=== PATIENT | female | born 1965 | race Caucasian/White ===

== ENCOUNTER 2017-07-08 13:32 | Emergency (ER) | payer OTHER ==
[~2017-07-08] VITALS: Ht 160 cm; Wt 91.6 kg
[~2017-07-08 13:32] MED LIST: ALBU90I; ALBU90OI INH; ALBU90OI6; ALBU90OI6 INH; ALLEGRA ALLERG180 MG; ANTIHISTAMINE; AZIT250 PO; BUPR75; CETI5; CODACE30; CODACEE120; CRUTCH3 USE; FLUC150A PO; Flonase 0.05% N16 GM; GUAI120S1 PO; HYDACE5 PO; Keflex500 MG PO; LEVFLO500; LISI5; LORA1SY; NAPR550 PO; PRED10 PO; PRED20 PO; Prednisone20 MG PO; RXNAPNA550 PO; SPACE CHAMBER1 EACH MC; SULTRIDS PO; TRAM50 PO; TRIA80TC; Xopenex Hfa15 GM PO
[2017-07-08 14:18] LABS: International Normalized Ratio 0.93; Prothrombin Time Results 9.6 Sec (9.7-11.5)
[2017-07-08 14:20] LABS: Alanine Aminotransfer (ALT/SGP 36 U/L (12-78); Albumin, Blood 3.5 g/dL (3.4-5.0); Albumin/Globulin Ratio 0.9 (0.8-1.8); Alk Phos 105 U/L (50-136); Anion Gap 7 mmol/L (6-16); Aspartate Aminotrans (AST/SGOT 21 U/L (12-37); Bilirubin, Total 0.2 mg/dL (0.1-1.0); Blood Urea Nitrogen 13 mg/dL (8-24); Bun/Creatinine Ratio 23.7 (12.0-20.0); CO2, Blood 26 mmol/L (21-32); Calcium, Blood 9.2 mg/dL (8.5-10.1); Chloride, Blood 106 mmol/L (98-108); Creatinine, Blood 0.55 mg/dL (0.40-1.00); Globulin, Blood 3.8 g/dL (2.2-4.0); Glomerular Filtration Rate >60 (60-); Glucose, Blood 185 mg/dL (70-99); Potassium, Blood 3.8 mmol/L (3.5-5.5); Sodium, Blood 139 mmol/L (136-145); Total Protein, Blood 7.3 g/dL (6.4-8.2); Troponin I <0.015 ng/mL (0.000-0.040)
[2017-07-08 14:34] LABS: BASOPHILS ABSOLUTE AUTO 0.06 K/mm3 (0.00-0.23); BASOPHILS PERCENT AUTO 1 % (0-2); EOSINOPHILS ABSOLUTE AUTO 0.23 K/mm3 (0.00-0.68); EOSINOPHILS PERCENT AUTO 3 % (0-6); Hematocrit 41.4 % (33.0-51.0); IMMATURE GRAN ABSOLUTE AUTO 0.03 K/mm3 (0.00-0.10); IMMATURE GRAN PERCENT AUTO 0 % (0-1); LYMPHOCYTES ABSOLUTE AUTO 2.09 K/mm3 (0.84-5.20); LYMPHOCYTES PERCENT AUTO 24 % (21-46); MONOCYTES ABSOLUTE AUTO 0.47 K/mm3 (0.16-1.47); MONOCYTES PERCENT AUTO 6 % (4-13); Mean Corpuscular HGB 30.2 pg (26.0-34.0); Mean Corpuscular HGB Conc 33.8 g/dL (31.5-36.5); Mean Corpuscular Volume 89 fL (80-100); Mean Platelet Volume 12.4 fL (9.1-12.4); NEUTROPHILS ABSOLUTE AUTO 5.69 K/mm3 (1.96-9.15); NEUTROPHILS PERCENT AUTO 66 % (41-73); Platelet Count 163 K/mm3 (150-400); RDW Coefficient Variation 13.2 % (11.7-14.2); RDW Standard Deviation 43.2 fL (35.1-46.3); Red Blood Cell Count 4.63 M/mm3 (3.80-5.20); White Blood Cell Count 8.57 K/mm3 (4.00-11.30)
[2017-07-08 15:05] LABS: Magnesium, Blood 2.1 mg/dL (1.6-2.4)
== END 2017-07-08 17:05 | disposition home or self-care (01) ==
LOC: ER 13:32
PROVIDERS: Emergency Medicine; Physician Assistant
DX: R00.2 Palpitations (principal); R07.89 Other chest pain; Z88.0 Allergy status to penicillin; Z88.8 Allergy status to other drugs, medicaments and biological substances; F17.210 Nicotine dependence, cigarettes, uncomplicated
CPT/HCPCS: 36415; 71046; 80053; 83735; 83880; 84484; 85025; 85610; 93005; 93010; 93225; 93226; 99283

== ENCOUNTER 2017-11-29 17:02 | Emergency (ER) | payer OTHER ==
[~2017-11-29] VITALS: Ht 157.5 cm; Wt 96.2 kg
== END 2017-11-29 17:35 | disposition home or self-care (01) ==
LOC: ER 17:02
DX: S99.911A Unspecified injury of right ankle, initial encounter (principal); X50.9XXA Other and unspecified overexertion or strenuous movements or postures, initial encounter; Z88.0 Allergy status to penicillin; Z88.8 Allergy status to other drugs, medicaments and biological substances; F17.210 Nicotine dependence, cigarettes, uncomplicated
CPT/HCPCS: 29515; 73610; 73630; 99283-25

== ENCOUNTER 2018-06-17 07:57 | Emergency (ER) | payer OTHER ==
[~2018-06-17] VITALS: Ht 157.5 cm; Wt 90.7 kg
[2018-06-17] MEDS ORDERED: Norco 5-325 Ta1 EACH PO (08:46)
== END 2018-06-17 08:57 | disposition home or self-care (01) ==
LOC: ER 07:57
DX: M25.511 Pain in right shoulder (principal); G89.29 Other chronic pain; F17.200 Nicotine dependence, unspecified, uncomplicated; Z88.0 Allergy status to penicillin
CPT/HCPCS: 99283

== ENCOUNTER 2018-09-11 11:30 | Emergency (ER) | payer OTHER ==
[~2018-09-11] VITALS: Ht 157.5 cm; Wt 93.0 kg
[~2018-09-11 11:30] MED LIST changes: +Norco 5-325 Ta1 EACH PO
== END 2018-09-11 13:14 | disposition home or self-care (01) ==
LOC: ER 11:30
DX: S93.402A Sprain of unspecified ligament of left ankle, initial encounter (principal); X50.9XXA Other and unspecified overexertion or strenuous movements or postures, initial encounter; Z88.0 Allergy status to penicillin; Z88.8 Allergy status to other drugs, medicaments and biological substances; F17.210 Nicotine dependence, cigarettes, uncomplicated
CPT/HCPCS: 29515; 73610; 99283-25

== ENCOUNTER 2019-02-06 17:34 | Emergency (ER) | payer OTHER ==
[~2019-02-06] VITALS: Ht 165.1 cm; Wt 93.0 kg
[~2019-02-06 17:34] MED LIST changes: -Dicyclomine HCl20 MG PO; -Zofran4 MG PO
[2019-02-06] MEDS ORDERED: Dicyclomine HCl20 MG PO (21:07)
[2019-02-06] MEDS ORDERED: Zofran4 MG PO (21:07)
== END 2019-02-06 21:15 | disposition home or self-care (01) ==
LOC: ER 17:34
DX: A08.4 Viral intestinal infection, unspecified (principal); F17.210 Nicotine dependence, cigarettes, uncomplicated; Z88.0 Allergy status to penicillin; Z91.048 Other nonmedicinal substance allergy status
CPT/HCPCS: 76705; 99284-25; A9270-GY

== ENCOUNTER → 2019-02-06 | Outpatient (CLI) | payer OTHER ==
[~2019-02-06] MED LIST changes: +Dicyclomine HCl20 MG PO; +Zofran4 MG PO
[2019-02-06 16:49] LABS: BASOPHILS ABSOLUTE AUTO 0.03 K/mm3 (0.00-0.23); BASOPHILS PERCENT AUTO 0 % (0-2); EOSINOPHILS ABSOLUTE AUTO 0.06 K/mm3 (0.00-0.68); EOSINOPHILS PERCENT AUTO 1 % (0-6); Hematocrit 44.5 % (33.0-51.0); IMMATURE GRAN ABSOLUTE AUTO 0.03 K/mm3 (0.00-0.10); IMMATURE GRAN PERCENT AUTO 0 % (0-1); LYMPHOCYTES ABSOLUTE AUTO 0.64 K/mm3 (0.84-5.20); LYMPHOCYTES PERCENT AUTO 9 % (21-46); MONOCYTES ABSOLUTE AUTO 0.26 K/mm3 (0.16-1.47); MONOCYTES PERCENT AUTO 4 % (4-13); Mean Corpuscular HGB 31.8 pg (26.0-34.0); Mean Corpuscular HGB Conc 33.7 g/dL (31.5-36.5); Mean Corpuscular Volume 95 fL (80-100); Mean Platelet Volume 12.4 fL (9.1-12.4); NEUTROPHILS ABSOLUTE AUTO 5.83 K/mm3 (1.96-9.15); NEUTROPHILS PERCENT AUTO 85 % (41-73); Platelet Count 161 K/mm3 (150-400); RDW Coefficient Variation 13.7 % (11.7-14.2); RDW Standard Deviation 47.1 fL (35.1-46.3); Red Blood Cell Count 4.71 M/mm3 (3.80-5.20); White Blood Cell Count 6.85 K/mm3 (4.00-11.30)
[2019-02-06 17:04] LABS: Alanine Aminotransfer (ALT/SGP 35 U/L (12-78); Albumin, Blood 3.6 g/dL (3.4-5.0); Albumin/Globulin Ratio 0.9 (0.8-1.8); Alk Phos 102 U/L (40-126); Anion Gap 6 mmol/L (6-16); Aspartate Aminotrans (AST/SGOT 18 U/L (12-37); Bilirubin, Total 0.4 mg/dL (0.1-1.0); Blood Urea Nitrogen 11 mg/dL (8-24); Bun/Creatinine Ratio 12.4 (12.0-20.0); CO2, Blood 31 mmol/L (21-32); Calcium, Blood 9.1 mg/dL (8.5-10.1); Chloride, Blood 104 mmol/L (98-108); Creatinine, Blood 0.89 mg/dL (0.40-1.00); Globulin, Blood 3.8 g/dL (2.2-4.0); Glomerular Filtration Rate >60 (60-); Glucose, Blood 184 mg/dL (70-99); Potassium, Blood 3.9 mmol/L (3.5-5.5); Sodium, Blood 141 mmol/L (136-145); Total Protein, Blood 7.4 g/dL (6.4-8.2)
== END | disposition home or self-care (01) ==
LOC: LAB EV 16:42 → LAB SHORT 16:42
PROVIDERS: General Practice
DX: R07.9 Chest pain, unspecified (principal); R11.2 Nausea with vomiting, unspecified
CPT/HCPCS: 80053; 83690; 84484; 85025

== ENCOUNTER 2020-11-27 10:57 | Observation (INO) | payer OTHER ==
[~2020-11-27] VITALS: Ht 160 cm; Wt 81.7 kg
[~2020-11-27 10:57] MED LIST changes: +Dicyclomine HCl20 MG PO; +Zofran4 MG PO
[2020-11-27 11:46] LABS: BASOPHILS ABSOLUTE AUTO 0.05 K/mm3 (0.00-0.23); BASOPHILS PERCENT AUTO 1 % (0-2); EOSINOPHILS ABSOLUTE AUTO 0.17 K/mm3 (0.00-0.68); EOSINOPHILS PERCENT AUTO 2 % (0-6); Hematocrit 39.7 % (33.0-51.0); Hemoglobin 13.2 g/dL (11.5-16.0); IMMATURE GRAN ABSOLUTE AUTO 0.02 K/mm3 (0.00-0.10); IMMATURE GRAN PERCENT AUTO 0 % (0-1); LYMPHOCYTES ABSOLUTE AUTO 1.61 K/mm3 (0.84-5.20); LYMPHOCYTES PERCENT AUTO 21 % (21-46); MONOCYTES ABSOLUTE AUTO 0.42 K/mm3 (0.16-1.47); MONOCYTES PERCENT AUTO 5 % (4-13); Mean Corpuscular HGB 30.6 pg (26.0-34.0); Mean Corpuscular HGB Conc 33.2 g/dL (31.5-36.5); Mean Corpuscular Volume 92 fL (80-100); Mean Platelet Volume 12.7 fL (9.1-12.4); NEUTROPHILS ABSOLUTE AUTO 5.51 K/mm3 (1.96-9.15); NEUTROPHILS PERCENT AUTO 71 % (41-73); Platelet Count 158 K/mm3 (150-400); RDW Coefficient Variation 13.5 % (11.7-14.2); RDW Standard Deviation 45.5 fL (35.1-46.3); Red Blood Cell Count 4.32 M/mm3 (3.80-5.20); White Blood Cell Count 7.78 K/mm3 (4.00-11.30)
[2020-11-27 12:16] LABS: Alanine Aminotransfer (ALT/SGP 25 U/L (12-78); Albumin, Blood 3.2 g/dL (3.4-5.0); Alk Phos 83 U/L (50-136); Anion Gap 3 mmol/L (6-16); Aspartate Aminotrans (AST/SGOT 18 U/L (12-37); Bilirubin, Total 0.3 mg/dL (0.1-1.0); Blood Urea Nitrogen 11 mg/dL (8-24); Bun/Creatinine Ratio 18.7 (12.0-20.0); CO2, Blood 27 mmol/L (21-32); Calcium, Blood 8.6 mg/dL (8.5-10.1); Chloride, Blood 109 mmol/L (98-108); Creatinine, Blood 0.59 mg/dL (0.40-1.00); Globulin, Blood 3.3 g/dL (2.2-4.0); Glomerular Filtration Rate >60 (60-); Glucose, Blood 265 mg/dL (70-99); Potassium, Blood 4.1 mmol/L (3.5-5.5); Sodium, Blood 139 mmol/L (136-145); Total Protein, Blood 6.5 g/dL (6.4-8.2); Troponin I <0.015 ng/mL (0.000-0.040)
[2020-11-27 15:21] LABS: SARS-Cov-2 (COVID-19) PCR, MMC NEGATIVE (NEGATIVE)
--- NOTE | 2020-11-27 16:38 | NUR ---
PT ARRIVED TO UNIT FROM ED VIA GURNEY, ABLE TO SELF TRANSFER TO BED, ABLE TO AMBULATE TO BATHROOM AND BACK TO BED WITH STEADY GAIT. PT IS ALERT AND ORIENTED, COOPERATIVE WITH CARE. VSS, ON ROOM AIR AND TOLERATING WELL. PT DENIES CHEST PAIN/PRESSURE, DENIES NAUSEA/HEADACHE. NITRO PATCH IN PLACE ON LEFT UPPER CHEST. TELEMETRY IN PLACE. PT ORIENTED TO ROOM AND CALL LIGHT WITHIN REACH, BED IN LOW POSITION.
--- NOTE | 2020-11-27 19:45 | NUR ---
DR Radha MARTINEZ notified of call from Tele Monitor Luiza in [facility] in couplets & triplets & discussed lack of complaints from PT. He will write order to adress PVCS up to 21 per minute ongoing. Continue observation & administer rx betablocker per MD orders.
--- NOTE | 2020-11-27 20:52 | NUR ---
echo done today results in chart & show EF 25 to 30% with global hypokinesis & trabiculations at [facility] with mild pul hypertension. Borderline heart enlargement.
[2020-11-28 05:59] LABS: CHOL/HDL RATIO 3.1; Cholesterol 134 mg/dL (50-200); HDL Cholesterol 43 mg/dL (>39); LDL/HDL RATIO 1.6; Low Density Lipoprotein Chol 70 mg/dL (0-110); Triglycerides 107 mg/dL (30-160); Very Low Density Lipoprot Chol 21 mg/dL (6-32)
--- NOTE | 2020-11-28 07:29 | NUR ---
PT a 1 PPD smoker for 25 years. PT encouraged to stop smoking. She denies SOB or chest pain or weakness. Low EF per echo yesterday with BNP 410. PT says Mother & GMA of strokes in their 50s. Sleepy rouses easily. Pleasant. PT has 4 adopted Children & 4 grandchildren in home currently. Has Sister in Law & brother with active covid 19 & attended a for a covid 19PT over the weekend, not vaccinated for covid 19.
[2020-11-28 11:49] LABS: U Amphetamine Screen Not Detected; U Barbituate Screen Not Detected; U Methamphetamine Screen Not Detected
[2020-11-28 11:50] LABS: U Benzodiazapine Screen Not Detected; U Buprenorphine Screen Not Detected; U Cannabinoids Screen Not Detected; U Cocaine Screen Not Detected; U Methadone Screen Not Detected; U Opiates Screen Not Detected; U Oxycodone Screen Not Detected; U Phencyclidine Screen Not Detected; U Propoxyphene Screen Not Detected
--- NOTE | 2020-11-28 16:56 | NUR ---
SHIFT SUMMARY PT IS AOX4. PT DENIES PAIN, N/V, SOB. PT IS INDEPENDENT IN ROOM. TELE REMAINS NSR WITH PVCS IN THE 70S. APPETITE IS GOOD AND PT IS CURRENTLY NPO FOR POTENTIAL ANGIOGRAM. PT HAD CARDIOLOGY CONSULT TODAY. PT HAS NOT HAD ANY PROCEDURES THIS SHIFT. PLAN IS FOR INPATIENT PROCEDURE OR OUTPATIENT PROCEDURES AND STRESS TEST. PT'S IS IN THE ROOM TO VISIT THIS TIMMY. PT IS IN CHAIR, CALL LIGHT IN REACH.
[2020-11-28] MEDS ORDERED: ATOR80 PO (17:51)
[2020-11-28] MEDS ORDERED: METO25ER PO (17:51)
[2020-11-28] MEDS ORDERED: ASPI81CH PO (17:51)
[2020-11-28] MEDS ORDERED: ENTRESTO 24 MG1 EACH PO (17:52)
[2020-11-28] MEDS ORDERED: SPIR25 PO (17:53)
[2020-11-28] MEDS ORDERED: NICOTINE1 EAC1 TOP (17:53)
[2020-11-28] MEDS ORDERED: FARXIGA10 MG PO (17:53)
--- NOTE | 2020-11-28 18:40 | NUR ---
DISCHARGE NOTE PT IS AOX4. PT IV REMOVED BY THIS RN PER DOCUMENTATION. THIS RN REVIEWED DC INSTRUCTIONS AND MEDICATIONS WITH PT WHO VERBALIZED UNDERSTANDING. PT DRESSED SELF IN HOME CLOTHING. PT GIVEN FIRST DOSE OF ENTRESTO-BP RECHECK WITHIN PARAMETERS TO SEND PT HOME TONIGHT. PT BELONGINGS PRESENT. PT WHEELED OFF UNIT BY NEONATOLOGIST AND LEFT IN PRIVATE VEHICLE WITH .
== END 2020-11-28 18:37 | disposition home or self-care (01) ==
LOC: ER 10:57 → MEDS 10:58
PROVIDERS: Internal Medicine Cardiovascular Disease; Nurse Practitioner Acute Care; Physician Assistant; ADMIT Internal Medicine
DX: I50.21 Acute systolic (congestive) heart failure (principal); F17.210 Nicotine dependence, cigarettes, uncomplicated; I49.3 Ventricular premature depolarization; I08.3 Combined rheumatic disorders of mitral, aortic and tricuspid valves; I47.1 Supraventricular tachycardia; E66.01 Morbid (severe) obesity due to excess calories; E11.65 Type 2 diabetes mellitus with hyperglycemia; I27.20 Pulmonary hypertension, unspecified; Z88.0 Allergy status to penicillin; Z91.048 Other nonmedicinal substance allergy status; Z20.822 Contact with and (suspected) exposure to COVID-19
CPT/HCPCS: 36415; 71045; 80053; 80061; 83036; 83880; 84443; 84484; 85025; 85379; 93005; 93010; 96372; 99285-25; A9270; C8929; G0378; J1650; Q9957; U0004

== ENCOUNTER 2021-03-10 16:35 | Inpatient (IN) | payer OTHER ==
[~2021-03-10] VITALS: Ht 160 cm; Wt 82.1 kg
[~2021-03-10 16:35] MED LIST changes: +ATOR80 PO; +Aspir 8181 MG PO; +ENTRESTO 24 MG1 EACH PO; +FARXIGA10 MG PO; +METO25ER PO; +NICOTINE1 EAC1 TOP; +SPIR25 PO
[2021-03-10] MEDS ORDERED: ATOR10 PO (17:14)
[2021-03-10] MEDS ORDERED: METF500C PO (17:15)
[2021-03-10] MEDS ORDERED: C COMPLEX1000 M1 PO (17:16)
[2021-03-10] MEDS ORDERED: VITAMIN D5000 UNIT PO (17:16)
[2021-03-10 17:21] LABS: Source, Urine Voided
[2021-03-10 17:25] LABS: Appearance, Urine Clear (Clear); Bilirubin, Urine Neg (Neg); Blood, Urine Neg (Neg); Color, Urine Yellow (P-Yellow); Glucose Qualitative, Urine Neg (Neg); Ketones, Urine Neg (Neg); Leukocyte Esterase, Urine Neg (Neg); Nitrite, Urine Neg (Neg); Protein, Urine Neg (Neg); Urobilinogen, Urine NORM (Normal)
[2021-03-10 17:31] LABS: BASOPHILS ABSOLUTE AUTO 0.04 K/mm3 (0.00-0.23); BASOPHILS PERCENT AUTO 1 % (0-2); EOSINOPHILS ABSOLUTE AUTO 0.37 K/mm3 (0.00-0.68); EOSINOPHILS PERCENT AUTO 5 % (0-6); Hematocrit 41.9 % (33.0-51.0); IMMATURE GRAN ABSOLUTE AUTO 0.02 K/mm3 (0.00-0.10); IMMATURE GRAN PERCENT AUTO 0 % (0-1); LYMPHOCYTES ABSOLUTE AUTO 1.79 K/mm3 (0.84-5.20); LYMPHOCYTES PERCENT AUTO 25 % (21-46); MONOCYTES ABSOLUTE AUTO 0.48 K/mm3 (0.16-1.47); MONOCYTES PERCENT AUTO 7 % (4-13); Mean Corpuscular HGB 30.3 pg (26.0-34.0); Mean Corpuscular HGB Conc 33.4 g/dL (31.5-36.5); Mean Corpuscular Volume 91 fL (80-100); NEUTROPHILS ABSOLUTE AUTO 4.62 K/mm3 (1.96-9.15); NEUTROPHILS PERCENT AUTO 63 % (41-73); RDW Coefficient Variation 13.2 % (11.7-14.2); RDW Standard Deviation 43.9 fL (35.1-46.3); Red Blood Cell Count 4.62 M/mm3 (3.80-5.20); White Blood Cell Count 7.32 K/mm3 (4.00-11.30)
[2021-03-10 17:34] LABS: Mean Platelet Volume 12.2 fL (9.1-12.4); Platelet Count 132 K/mm3 (150-400)
[2021-03-10 17:35] LABS: Alanine Aminotransfer (ALT/SGP 32 U/L (12-78); Albumin, Blood 3.3 g/dL (3.4-5.0); Albumin/Globulin Ratio 0.9 (0.8-1.8); Alk Phos 104 U/L (50-136); Anion Gap 6 mmol/L (6-16); Aspartate Aminotrans (AST/SGOT 19 U/L (12-37); Bilirubin, Total 0.2 mg/dL (0.1-1.0); Blood Urea Nitrogen 9 mg/dL (8-24); Bun/Creatinine Ratio 15.9 (12.0-20.0); CO2, Blood 24 mmol/L (21-32); Calcium, Blood 9.2 mg/dL (8.5-10.1); Chloride, Blood 110 mmol/L (98-108); Creatinine, Blood 0.57 mg/dL (0.40-1.00); Globulin, Blood 3.6 g/dL (2.2-4.0); Glomerular Filtration Rate >60 (60-); Glucose, Blood 162 mg/dL (70-99); Potassium, Blood 3.9 mmol/L (3.5-5.5); Sodium, Blood 140 mmol/L (136-145); Total Protein, Blood 6.9 g/dL (6.4-8.2)
[2021-03-11 03:01] LABS: Influenza A, PCR NEGATIVE (NEGATIVE); Influenza B, PCR NEGATIVE (NEGATIVE); Resp Syncytial Virus, PCR NEGATIVE (NEGATIVE)
[2021-03-11 03:09] LABS: SARS-Cov-2 (COVID-19) PCR, MMC POSITIVE (NEGATIVE)
[2021-03-11 07:32] LABS: CHOL/HDL RATIO 2.8; Cholesterol 109 mg/dL (50-200); HDL Cholesterol 39 mg/dL (>39); LDL/HDL RATIO 0.9; Low Density Lipoprotein Chol 37 mg/dL (0-110); Triglycerides 166 mg/dL (30-160); Very Low Density Lipoprot Chol 33 mg/dL (6-32)
[2021-03-11 11:51] LABS: SARS-Cov-2 (COVID-19) PCR, MMC POSITIVE (NEGATIVE)
[2021-03-11] MEDS ORDERED: ZINC50 M3 PO (15:34)
--- NOTE | 2021-03-11 18:49 | NUR ---
ADMISSION/SHIFT SUMMARY: PT IS NEW ADMIT FROM ER, ARRIVING S/P UPHOLSTERY AUTO TRIMMER AT APPROX 1645. PT ARRIVES A&Ox4, MAINTAINS O2 SATS >93% ON RA, SR ON MONITOR. RT RADIAL ACCESS SITE W/TR BAND IN PLACE, CURRENTLY BEING DEFLATED PER PROTOCOL. PT DENIES SOB, CP, DIZZINESS OR SYNCOPAL EPISODES. PT AMBULATES TO/FROM RESTROOM W/SBA AND ABLE TO EAT DINNER TRAY W/OUT DIFFICULTY. PLAN IS FOR PT TO RETURN TO [employer] TOMORROW FOR PACER/DEFIB PLACEMENT. AT THIS TIME, PT RESTING QUIETLY IN BED W/LIGHTS LOW, CALL LIGHT WITHIN REACH. WILL CONTINUE TO MONITOR AND TREAT ACCORDINGLY UNTIL CHANGE OF SHIFT.
--- NOTE | 2021-03-11 19:54 | NUR ---
ASSUMPTION OF CARE NOTE PT IS ALERT AND ORIENTED X 4. ABLE TO USE BEDSIDE COMMODE AND DENIED ANY FEELING OF SHORTNESS OF BREATH OR CHEST PAIN/PRESSURE. RIGHT RADIAL ACCESS SITE HAS TR BAND IN PLACE, NO APPARENT BLEEDING. 2 ML AIR REMOVED AT 1955, 3ML REMAINING. ARM BOARD IN PLACE. IV FLUID RUNNING AT 200 ML/HR. WILL CONTINUE TO MONITOR. ZOLL DEFIBRILATOR AT BEDSIDE. CALL LIGHT IN REACH.
--- NOTE | 2021-03-12 02:43 | NUR ---
CARE NOTE PT AWAKE TO UTILIZE COMMODE SO TR BAND REMOVED APPROX 0230 FROM RIGHT RADIAL ACCESS SITE. SITE HAS REMAINED UNCHANGED FROM PREVIOUS ASSESSMENT AND IS NOW COVERED WITH TRANSPARENT DRESSING. ARM BOARD IN PLACE. NO OTHER ACUTE CHANGES NOTED, WILL CONTINUE TO MONITOR.
--- NOTE | 2021-03-12 03:33 | NUR ---
CARE NOTE RIGHT RADIAL ACCESS SITE REMAINS UNCHANGED FROM PREVIOUS ASSESSMENT, TRANSPARENT DRESSING REMAINS INTACT, ARM BOARD IN PLACE. WILL CONTINUE TO MONITOR, CALL LIGHT IN REACH.
[2021-03-12 04:36] LABS: Anion Gap 4 mmol/L (6-16); Blood Urea Nitrogen 7 mg/dL (8-24); Bun/Creatinine Ratio 13.4 (12.0-20.0); CO2, Blood 27 mmol/L (21-32); Calcium, Blood 8.8 mg/dL (8.5-10.1); Chloride, Blood 111 mmol/L (98-108); Creatinine, Blood 0.52 mg/dL (0.40-1.00); Glomerular Filtration Rate >60 (60-); Glucose, Blood 117 mg/dL (70-99); Potassium, Blood 3.9 mmol/L (3.5-5.5); Sodium, Blood 142 mmol/L (136-145)
--- NOTE | 2021-03-12 05:36 | NUR ---
CARE NOTE PT ALERT AND ORIENTED X 4. PT REPORTED BACK PAIN 7/10 AND STATED SHE FEELS LIKE SHE HAS A KNOT IN HER BACK FROM THE BED. THIS NURSE PROVIDED HEAT PAD AND GAVE BACK MASSAGE. PT REPORTED RELIEF FROM BOTH MEASURES. WILL CONTINUE TO MONITOR.
--- NOTE | 2021-03-12 06:25 | NUR ---
SHIFT SUMMARY PT REMAINED ALERT AND ORIENTED X 4. VITAL SIGNS STABLE. PT CONTINUED TO AMBULATE TO BEDSIDE COMMODE TO VIOD. WHEN AMBULATING PT DENIED LIGHTHEADEDNESS, SHORTNESS OF BREATH, OR CHEST PAIN/PRESSURE. PT REPORTED BACK PAIN DURING SHIFT. SEE PREVIOUS NOTE. RIGHT RADIAL ACCESS SITE REMAINS UNCHANGED FROM PREVIOUS ASSESSMENT. NO OTHER ACUTE CHANGES, NO CARDIAC EVENTS DURING SHIFT. WILL CONTINUE TO MONITOR UNTIL REPORT GIVEN. CALL LIGHT IN REACH, PT NOW WATCHING TV.
[2021-03-12 06:48] LABS: BASOPHILS ABSOLUTE AUTO 0.03 K/mm3 (0.00-0.23); BASOPHILS PERCENT AUTO 0 % (0-2); EOSINOPHILS ABSOLUTE AUTO 0.31 K/mm3 (0.00-0.68); EOSINOPHILS PERCENT AUTO 4 % (0-6); Hemoglobin 12.8 g/dL (11.5-16.0); IMMATURE GRAN ABSOLUTE AUTO 0.01 K/mm3 (0.00-0.10); IMMATURE GRAN PERCENT AUTO 0 % (0-1); LYMPHOCYTES ABSOLUTE AUTO 1.58 K/mm3 (0.84-5.20); LYMPHOCYTES PERCENT AUTO 22 % (21-46); MONOCYTES ABSOLUTE AUTO 0.43 K/mm3 (0.16-1.47); MONOCYTES PERCENT AUTO 6 % (4-13); Mean Corpuscular HGB Conc 32.8 g/dL (31.5-36.5); Mean Corpuscular Volume 92 fL (80-100); Mean Platelet Volume 11.8 fL (9.1-12.4); NEUTROPHILS ABSOLUTE AUTO 4.76 K/mm3 (1.96-9.15); NEUTROPHILS PERCENT AUTO 67 % (41-73); Platelet Count 151 K/mm3 (150-400); RDW Coefficient Variation 13.2 % (11.7-14.2); RDW Standard Deviation 44.3 fL (35.1-46.3); Red Blood Cell Count 4.26 M/mm3 (3.80-5.20); White Blood Cell Count 7.12 K/mm3 (4.00-11.30)
--- NOTE | 2021-03-12 16:59 | NUR ---
SHIFT SUMMARY: PT CONTINUES A&O T/OUT SHIFT, MAINTAINS O2 SATS >93% ON RA, SR ON MONITOR. RT RADIAL SITE CONTINUES TO HEAL WNL, ARM BOARD IN PLACE. PT TO/FROM C W/SBA W/OUT DIFFICULTY OR C/O DIZZINESS. PT PROVIDED W/WARM BLANKETS AND HEATING PAD RESTARTED FOR BACK PAIN, PT CONTINUES TO REPORT IMPROVEMENT OF BACK PAIN. PT REMAINS NPO T/OUT THE DAY, GOES TO UI ARCHITECT APPROX 1535 FOR ICD PLACEMENT, PT STILL IN UI ARCHITECT AT THIS TIME. WILL CONTINUE TO MONITOR AND TREAT ACCORDINGLY UNTIL CHANGE OF SHIFT.
--- NOTE | 2021-03-12 18:48 | NUR ---
UPDATE: PT ARRIVES BACK TO UNIT APPROX 1730 S/P DUAL CHAMBER PACEMAKER PLACEMENT. PT ARRIVES A&O, CONTINUES ON ROOM AIR, SR ON MONITOR, ACCESS SITE TO L CHEST WALL WITH MILD SWELLING, CLEAR DRESSING IN PLACE, RN ED RN DENIES NEED FOR PRESSURE DRESSING. VS CONTINUE WNL, PT PROVIDED WITH MEAL TRAY. AT THIS TIME, PT RESTING QUIETLY IN ROOM, DENIES FURTHER NEEDS. WILL CONTINUE TO MONITOR.
--- NOTE | 2021-03-13 04:33 | NUR ---
SHIFT SUMMARY PATIENT ALERT AND ORIENTED ALL SHIFT. VSS. PATIENT REMAINS ON ROOM AIR WITH OXYGEN SATURATION ABOVE 95%. MEDICATED PER EMAR FOR PAIN. DENIES CHEST PAIN BUT COMPLAINS OF POST PROCEDURE PAIN. DRESSING ON LEFT CHEST WALL HAS A SMALL AMOUNT OF DRAINAGE. RIGHT RADIAL SITE COVERED WITH TRANSPRENT DRESSING THAT IS C/D/I, ARM BOARD IN PLACE. PATIENT ABLE TO USE BEDSIDE COMMODE THROUGH NIGHT, UP STAND BY ASSIST. NO OTHER SIGNIFICANT CHANGES. PATIENT ABLE TO MAKE NEEDS KNOWN TO STAFF. WILL CONTINUE TO MONITOR.
[2021-03-13] MEDS ORDERED: ENTRESTO 24 MG1 EAC2 PO (11:59)
--- NOTE | 2021-03-13 12:28 | NUR ---
Discharge instructions reviewed with the patient, including activity restrictions, keeping wound clean and dry until woundcheck appointment next week, follow up appointments, and new prescription. PT verbalized understanding of all of these, and said that her will be coming to pick her up.
== END 2021-03-13 13:14 | disposition home or self-care (01) | DRG 224 ==
LOC: ER 16:35 → ERHOLD 16:36 → PCU 03-11 16:16
PROVIDERS: Family Medicine; Internal Medicine Cardiovascular Disease; Student in an Organized Health Care Education/Training Program; ADMIT Internal Medicine
PROC: 4A023N7 Measurement of Cardiac Sampling and Pressure, Left Heart, Percutaneous Approach (ICD-10-PCS; 2021-03-11)
PROC: B2111ZZ Fluoroscopy of Multiple Coronary Arteries using Low Osmolar Contrast (ICD-10-PCS; 2021-03-11)
PROC: 0JH608Z Insertion of Defibrillator Generator into Chest Subcutaneous Tissue and Fascia, Open Approach (ICD-10-PCS; principal; 2021-03-12)
PROC: 02HK3KZ Insertion of Defibrillator Lead into Right Ventricle, Percutaneous Approach (ICD-10-PCS; 2021-03-12)
PROC: 02H63KZ Insertion of Defibrillator Lead into Right Atrium, Percutaneous Approach (ICD-10-PCS; 2021-03-12)
DX: I49.3 Ventricular premature depolarization (principal); U07.1 COVID-19; G45.9 Transient cerebral ischemic attack, unspecified; I50.22 Chronic systolic (congestive) heart failure; G81.94 Hemiplegia, unspecified affecting left nondominant side; I42.8 Other cardiomyopathies; R55 Syncope and collapse; I11.0 Hypertensive heart disease with heart failure; E78.5 Hyperlipidemia, unspecified; E11.9 Type 2 diabetes mellitus without complications; I08.3 Combined rheumatic disorders of mitral, aortic and tricuspid valves; E66.9 Obesity, unspecified; G47.33 Obstructive sleep apnea (adult) (pediatric); R29.810 Facial weakness; F17.210 Nicotine dependence, cigarettes, uncomplicated; Z71.6 Tobacco abuse counseling; Z79.82 Long term (current) use of aspirin; Z79.899 Other long term (current) drug therapy; Z88.0 Allergy status to penicillin; Z28.9 Immunization not carried out for unspecified reason; Z91.048 Other nonmedicinal substance allergy status; Z90.710 Acquired absence of both cervix and uterus; Z98.890 Other specified postprocedural states; Z79.84 Long term (current) use of oral hypoglycemic drugs; Z91.19 Patient's noncompliance with other medical treatment and regimen
CPT/HCPCS: 0241U; 33249; 36415; 70496; 70498; 71045; 80048; 80053; 80061; 81003; 84484; 85025; 93005; 93010; 93454; 99152; 99153; 99285-25; A9270; C1721; C1769; C1887; C1894; C1895; C1898; G0378; J0690; J1644; J2250; J2405; J3010; J3370; J7030; J7040; J7050; Q9967; U0004

== ENCOUNTER 2025-03-03 21:32 | Emergency (ER) | payer MEDICARE, OTHER ==
[~2025-03-03] VITALS: Ht 160 cm; Wt 74.8 kg
[~2025-03-03 21:32] MED LIST changes: +ATOR10 PO; +C COMPLEX1000 M1 PO; +ENTRESTO 24 MG1 EAC2 PO; +METF500C PO; +VITAMIN D5000 UNIT PO; +ZINC50 M3 PO
[2025-03-03 22:49] LABS: BASOPHILS ABSOLUTE AUTO 0.07 K/mm3 (0.00-0.23); BASOPHILS PERCENT AUTO 1 % (0-2); EOSINOPHILS ABSOLUTE AUTO 0.34 K/mm3 (0.00-0.68); EOSINOPHILS PERCENT AUTO 3 % (0-6); Hematocrit 46.3 % (33.0-51.0); Hemoglobin 15.4 g/dL (11.5-16.0); IMMATURE GRAN ABSOLUTE AUTO 0.03 K/mm3 (0.00-0.10); IMMATURE GRAN PERCENT AUTO 0 % (0-1); LYMPHOCYTES ABSOLUTE AUTO 2.61 K/mm3 (0.84-5.20); LYMPHOCYTES PERCENT AUTO 26 % (21-46); MONOCYTES ABSOLUTE AUTO 0.65 K/mm3 (0.16-1.47); MONOCYTES PERCENT AUTO 7 % (4-13); Mean Corpuscular HGB Conc 33.3 g/dL (31.5-36.5); Mean Corpuscular Volume 92 fL (80-100); NEUTROPHILS ABSOLUTE AUTO 6.29 K/mm3 (1.96-9.15); NEUTROPHILS PERCENT AUTO 63 % (41-73); NRBC ABSOLUTE 0.00 K/mm3 (0.00-0.02); NRBC Auto 0.0 /100 WBC (0.0-0.2); Platelet Count 188 K/mm3 (150-400); RDW Coefficient Variation 13.3 % (11.7-14.2); RDW Standard Deviation 45.2 fL (35.1-46.3)
[2025-03-03 23:09] LABS: Alanine Aminotransfer (ALT/SGP 35.0 U/L (12-78); Albumin, Blood 3.8 g/dL (3.4-5.0); Albumin/Globulin Ratio 1.0 (0.8-1.8); Anion Gap 7.0 mmol/L (3-11); Aspartate Aminotrans (AST/SGOT 20.0 U/L (12-37); Bilirubin, Total 0.3 mg/dL (0.1-1.0); Blood Urea Nitrogen 22.0 mg/dL (8-24); CO2, Blood 28.0 mmol/L (21-32); Calcium, Blood 9.9 mg/dL (8.5-10.1); Chloride, Blood 105.0 mmol/L (98-108); Creatinine, Blood 0.73 mg/dL (0.40-1.00); Globulin, Blood 3.7 g/dL (2.2-4.0); Glucose, Blood 122.0 mg/dL (70-99); Potassium, Blood 4.0 mmol/L (3.5-5.5); Sodium, Blood 136.0 mmol/L (136-145); Total Protein, Blood 7.5 g/dL (6.4-8.2)
[2025-03-04] MEDS ORDERED: ONDA4ODT MM (01:00)
[2025-03-04] MEDS ORDERED: RX Prepack 2 Tabs Ondansetron ODT 4MG UD ONE (01:05)
[2025-03-04 01:15] VITALS: BP 90/56
== END 2025-03-04 01:15 | disposition home or self-care (01) ==
LOC: ER 21:32
PROVIDERS: Student in an Organized Health Care Education/Training Program
DX: S09.90XA Unspecified injury of head, initial encounter (principal); I10 Essential (primary) hypertension; E11.9 Type 2 diabetes mellitus without complications; F17.210 Nicotine dependence, cigarettes, uncomplicated; W03.XXXA Other fall on same level due to collision with another person, initial encounter
CPT/HCPCS: 70450; 72125; 80053; 85025; 93005; 93010; 99284-25